=== PATIENT | female | born 1940 ===

== ENCOUNTER → 2017-01-09 | Day surgery (SDC) | payer OTHER ==
[~2017-01-09] MED LIST: BUPIVACAINE HCL PF 0.75% 30 ML VIAL ONE; EPINEPHrine HCL (1:1000) 30 MG/30 ML VIAL ONE; LACTATED RINGER'S 1000 ML INJ 1,000 ML ONE; LIDOCAINE 1.5%/EPINEPHrine 1:200,000 PF SOLN 30 ML AMP ONE; MIDAZOLAM HCL 2 MG/2 ML VIAL ONE; ONDANSETRON HCL 4 MG/2 ML VIAL IV PUSH ONE; PROPOFOL 200 MG/20 ML AMP IV ONE; ceFAZolin 2 GM PREMIX 50 ML ONE
--- NOTE | 2017-01-11 12:03 | MP ---
cc: ARTHUR TOLLIVER M.D. DATE OF SURGERY: 01/09/2017 PREOPERATIVE DIAGNOSIS Right shoulder rotator cuff tendon tear. Right shoulder impingement syndrome. Right shoulder SLAP labral tear. POSTOPERATIVE DIAGNOSES Right shoulder rotator cuff tendon tear. Right shoulder impingement syndrome. Right shoulder SLAP labral tear. PROCEDURE Right shoulder arthroscopic rotator cuff repair. Right shoulder arthroscopic subacromial decompression. Right shoulder arthroscopic extensive debridement of SLAP labral tear. SURGEON Dr. Arthur Tolliver FORENSIC CHEMIST Arthur Ricketts PA-C ANESTHESIA General with interscalene block. ESTIMATED BLOOD LOSS Less than 10 cc. COMPLICATIONS None. IMPLANTS USED Arthrex. JUSTIFICATION The patient is a 76-year-old female who injured the right shoulder. She had persistence of pain in regards to her condition with failure of conservative treatment. Clinical exam as well as MRI confirmed the above-named findings. The patient was counseled as to the risks, benefits and alternatives to the above-named proposed surgical procedure. She did wish to proceed with surgery. PROCEDURE IN DETAIL Written consent was obtained. The patient was identified by name, taken to the operating room and placed supine on the operating table. General anesthesia was administered as well as two grams of IV Ancef. She did receive a preoperative interscalene block. The patient was carefully turned to a left lateral decubitus position. A lateral arm roll was placed. All bony prominences and pressure points were well-padded. The right shoulder and right arm was gently placed in a padded arthroscopic arm arredondo and 10 pounds of traction placed. The right shoulder was prepped and draped using isopropyl alcohol, Hibiclens solution and DuraPrep solution. After a timeout was performed, a standard posterior and anterior glenohumeral arthroscopic portal was established. The glenohumeral joint revealed evidence of labral tearing along the anterior, superior and posterior aspect. An arthroscopic shaver was introduced from the anterior portal and extensive debridement of the labrum was performed from the 3 o'clock position up to the 12 o'clock position and back down to the 9 o'clock position. 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 The biceps origin was intact. Attention was turned to the subacromial space. There was evidence of impingement bursitis. An Arthrex shaver was introduced from a lateral portal. A subacromial decompression was performed. The shaver was used to perform an extensive bursectomy. An arthroscopic bur was used to perform an acromioplasty and the cautery device was used to release the coracoacromial ligament. There was evidence of a full-thickness tear of the rotator cuff tendon along the anterior portion of the supraspinatus tendon. A bur was used to decorticate the greater tuberosity in preparation for rotator cuff tendon repair. An Arthrex Scorpion device was used to shuttle #2 FiberTape suture in a horizontal mattress pattern through the torn tendon. #2 FiberLink suture was placed along the posterior portion. The sutures were then placed through the eyelet of an Arthrex 4.75 mm Bio-SwiveLock anchor. The anchor was inserted in the greater tuberosity after appropriate tensioning of sutures. The rotator cuff tendon repair was probed and noted to have good stability and fixation. The arthroscopic portals were closed with 3-0 Prolene suture. Sterile dressing was applied. The patient was placed into a sling and swathe immobilizer. She tolerated the procedure well with no intraoperative complications noted. Arthur Ricketts, physician assistant operator certified, was present during the entire procedure to include patient positioning and the procedure itself. The medical necessity of a physician assistant operator was indicated in this case due to the complexity of the procedure. He assisted with appropriate manipulation of the arm and also manipulation of the camera. He assisted with shuttling of sutures and also implantation of suture anchor for purposes of rotator cuff tendon repair. MD DANITA Baldwin/OUSMANE /2:11 PM /11:43 AM
== END | disposition home or self-care (01) ==
LOC: ESDC 11:09
PROVIDERS: ATTEND Orthopaedic Surgery Sports Medicine
DX: M75.121 Complete rotator cuff tear or rupture of right shoulder, not specified as traumatic (principal); M75.41 Impingement syndrome of right shoulder; S43.431A Superior glenoid labrum lesion of right shoulder, initial encounter
CPT/HCPCS: 01630; 01991; 29823; 29826; 29827; 64417; C1713; J0171; J0690; J2250; J2405; J7120